=== PATIENT | female | born 1965 | race Caucasian/White ===

== ENCOUNTER → 2016-11-29 | Emergency (ER) | payer MEDICARE ==
[~2016-11-29] MED LIST: ALPR0.254 PO; ALPR1TAB2 PO; ATEN50TA41 PO; CLON0.2T10 PO; HYDR-3240 PO; LISI-167 PO; TRAZ150T68 PO; [UNRECOGNIZED DRUG - REMARK] PO
== END ==
LOC: ED 06:59
DX: B86 Scabies (principal); F41.1 Generalized anxiety disorder
CPT/HCPCS: 99283

== ENCOUNTER 2017-01-15 18:31 | Emergency (ER) | payer MEDICARE ==
[~2017-01-15] VITALS: Ht 170.2 cm; Wt 68.0 kg
[2017-01-15 18:35] VITALS: BP 115/80
[2017-01-15] MEDS ORDERED: DIPHENHYDRAMINE 50 MG/ML, 1ML IM ONE (20:00)
[2017-01-15] MEDS ORDERED: LORazepam 2 MG/ML, 1ML IM ONE (20:00)
[2017-01-15] MEDS ORDERED: DEXAMETHASONE 4 MG/ML, 1ML IM ONE (20:00)
[2017-01-15] MEDS ORDERED: DEXAMETHASONE 4 MG/ML, 5ML ONE (20:12)
[2017-01-15] MEDS ORDERED: LORazepam 2 MG/ML, 1ML ONE (20:12)
== END 2017-01-15 21:28 | disposition home or self-care (01) ==
LOC: ED 20:30
DX: L24.9 Irritant contact dermatitis, unspecified cause (principal)
CPT/HCPCS: 96372; 99284; J1100; J2060; Q0177

== ENCOUNTER 2017-01-20 09:46 | Emergency (ER) | payer MEDICARE ==
[~2017-01-20] VITALS: Ht 170.2 cm; Wt 65.0 kg
[2017-01-20] MEDS ORDERED: SODIUM CHLORIDE FLUSH 10ML SYR IVF ONE (10:00)
[2017-01-20] MEDS ORDERED: SODIUM CHLORIDE 0.9% 1,000ML IVBOLUS ONE (10:00)
[2017-01-20] MEDS ORDERED: KETOROLAC 30 MG/1 ML IVPush ONE (10:00)
[2017-01-20] MEDS ORDERED: KETOROLAC 30 MG/1 ML ONE (10:09)
[2017-01-20 10:54] LABS: BLOOD UREA NITROGEN 14 mg/dL (7-18)
[2017-01-20 10:59] LABS: IS PT STATUS REG ER OR PRE ER? YES
[2017-01-20 13:38] VITALS: BP 100/70
== END 2017-01-20 13:44 | disposition home or self-care (01) ==
LOC: ED 11:07
DX: R07.2 Precordial pain (principal); R55 Syncope and collapse; K21.9 Gastro-esophageal reflux disease without esophagitis; I51.7 Cardiomegaly; F41.9 Anxiety disorder, unspecified; I10 Essential (primary) hypertension
CPT/HCPCS: 36415; 71010; 80048; 82040; 84484; 85025; 85379; 93005; 96374; 99285; J1885; J7030

== ENCOUNTER 2017-04-15 20:42 | Emergency (ER) | payer MEDICARE ==
[~2017-04-15] VITALS: Ht 170.2 cm; Wt 66.7 kg
[~2017-04-15 20:42] MED LIST changes: +TRAZ150T62 PO; -TRAZ150T68 PO
[2017-04-15 20:54] VITALS: BP 136/89
== END 2017-04-15 21:40 | disposition home or self-care (01) ==
LOC: ED 21:36
DX: K04.7 Periapical abscess without sinus (principal); K02.9 Dental caries, unspecified; K21.9 Gastro-esophageal reflux disease without esophagitis; I10 Essential (primary) hypertension
CPT/HCPCS: 99283

== ENCOUNTER 2017-11-14 18:43 | Emergency (ER) | payer MEDICARE, MEDICAID ==
[~2017-11-14] VITALS: Ht 177.8 cm; Wt 62.9 kg
[2017-11-14 18:54] VITALS: BP 202/131
== END 2017-11-14 19:39 | disposition home or self-care (01) ==
LOC: ED 19:10
DX: L29.9 Pruritus, unspecified (principal)
CPT/HCPCS: 99283

== ENCOUNTER 2018-05-17 09:45 | Emergency (ER) | payer MEDICAID, MEDICARE ==
[~2018-05-17] VITALS: Ht 177.8 cm; Wt 64.0 kg
[2018-05-17 10:12] VITALS: BP 156/109
[2018-05-17] MEDS ORDERED: HYDR25TA6 PO (10:13)
== END 2018-05-17 10:45 | disposition home or self-care (01) ==
LOC: ED 10:43
DX: L24.3 Irritant contact dermatitis due to cosmetics (principal); I10 Essential (primary) hypertension; K21.9 Gastro-esophageal reflux disease without esophagitis; F17.200 Nicotine dependence, unspecified, uncomplicated
CPT/HCPCS: 99283

== ENCOUNTER 2018-06-27 14:26 | Emergency (ER) | payer MEDICARE ==
[~2018-06-27] VITALS: Ht 167.6 cm; Wt 62.7 kg
[~2018-06-27 14:26] MED LIST changes: +HYDR25TA6 PO
[2018-06-27 14:57] LABS: BASOPHILS # (AUTO) 0.01 x10^3/uL (0-0.1); BASOPHILS % (AUTO) 0 % (0-1); EOSINOPHILS # (AUTO) 0.27 x10^3/uL (0-0.4); EOSINOPHILS % (AUTO) 4 % (1-7); LYMPHOCYTES % (AUTO) 21 % (22-44); MD NO; MEAN CORPUSCULAR HEMOGLOBIN 29.6 pg (27.0-34.8); MEAN CORPUSCULAR VOLUME 89.6 fL (80-100); MONOCYTES # (AUTO) 0.32 x10^3/uL (0.2-0.8); MONOCYTES % (AUTO) 5 % (2-9); NEUTROPHILS # (AUTO) 4.77 x10^3/uL (1.8-6.8); NEUTROPHILS % (AUTO) 71 % (42-75); PLATELET COUNT 241 x10^3/uL (130-400); RED BLOOD COUNT 4.88 x10^6/uL (3.82-5.3); RED CELL DISTRIBUTION WIDTH 14.2 % (9.6-15.2)
[2018-06-27 15:09] LABS: ALANINE AMINOTRANSFERASE 22 U/L (12-78); ALBUMIN 3.7 g/dL (3.4-5.0); ANION GAP 9 mmol/L (5-15); CALCIUM 8.1 mg/dL (8.5-10.1); CHLORIDE 107 mmol/L (98-107); CREATININE 0.89 mg/dL (0.55-1.02)
[2018-06-27 15:11] LABS: ALKALINE PHOSPHATASE 109 U/L (45-117); BILIRUBIN,TOTAL 0.2 mg/dL (0.2-1.0); TOTAL PROTEIN 6.8 g/dL (6.4-8.2)
--- NOTE | 2018-06-27 15:46 | NUR ---
PATIENT PRESENTS TO ED TODAY FOR BENITO, V/D, DIZZINESS, AND WEAKNESS X 2 DAYS. SKIN WARM, PINK, DRY. NAD NOTED, SPOUSE AT BEDSIDE, CALL LIGHT WITHIN REACH. AWAITING MD ORDERS.
[2018-06-27] MEDS ORDERED: TRAZ50TA66 PO (15:50)
[2018-06-27 15:51] VITALS: BP 140/113
--- NOTE | 2018-06-27 15:51 | NUR ---
PA AT BEDSIDE.
--- NOTE | 2018-06-27 15:53 | NUR ---
UA NOT INDICATED PER PA. NO UA COLLECTED.
--- NOTE | 2018-06-27 15:55 | NUR ---
PATIENT TO XRAY VIA GURNEY AT THIS TIME, NAD NOTED.
--- NOTE | 2018-06-27 16:21 | NUR ---
WENT INTO ROOM TO DC PATIENT, PATIENT IN BATHROOM.
--- NOTE | 2018-06-27 16:34 | NUR ---
Patient/Caregiver given discharge instructions and they have confirmed that they understand the instructions. Patient ambulatory with steady gait.
== END 2018-06-27 16:36 | disposition home or self-care (01) ==
LOC: ED 16:30
DX: J01.10 Acute frontal sinusitis, unspecified (principal); I10 Essential (primary) hypertension; G43.909 Migraine, unspecified, not intractable, without status migrainosus; K21.9 Gastro-esophageal reflux disease without esophagitis; F41.1 Generalized anxiety disorder; F17.200 Nicotine dependence, unspecified, uncomplicated
CPT/HCPCS: 36415; 71046; 80053; 83690; 85025; 99284

== ENCOUNTER 2018-10-06 19:14 | Emergency (ER) | payer MEDICARE ==
[~2018-10-06 19:14] MED LIST changes: +TRAZ50TA66 PO
== END 2018-10-06 19:29 | disposition left against medical advice (07) ==
LOC: ED 19:23
DX: R03.0 Elevated blood-pressure reading, without diagnosis of hypertension (principal); Z76.0 Encounter for issue of repeat prescription; Z53.21 Procedure and treatment not carried out due to patient leaving prior to being seen by health care provider

== ENCOUNTER 2019-08-28 19:00 | Emergency (ER) | payer MEDICARE ==
[~2019-08-28] VITALS: Ht 170.2 cm; Wt 58.7 kg
[2019-08-28 19:07] VITALS: BP 180/122
--- NOTE | 2019-08-28 19:34 | NUR ---
NO ANSWER WHEN CALLED TO BE ROOMED @ [id number]
--- NOTE | 2019-08-28 19:43 | NUR ---
NO ANSWER WHEN CALLED TO BE ROOMED @ 1943.
--- NOTE | 2019-08-28 20:06 | NUR ---
NO ANSWER WHEN CALLED TO BE ROOMED @ 2005.
== END 2019-08-28 20:13 | disposition left against medical advice (07) ==
LOC: ED 20:00
DX: J02.9 Acute pharyngitis, unspecified (principal); R50.9 Fever, unspecified; Z53.21 Procedure and treatment not carried out due to patient leaving prior to being seen by health care provider

== ENCOUNTER 2020-04-19 18:52 | Emergency (ER) | payer MEDICARE, MEDICAID ==
[~2020-04-19] VITALS: Ht 170.2 cm; Wt 63.8 kg
[2020-04-19 19:04] VITALS: BP 197/110
[2020-04-19] MEDS ORDERED: HYDR50TA3 PO (19:28)
--- NOTE | 2020-04-19 19:33 | NUR ---
PT CC OF L FOREARM PAIN SHE BELIEVES FROM INSECT BITE ABOUT 3-4 HRS AGO. FOREARM RED AND SWOLLEN APPROX 4 IN LENGTH, 1.5 IN WIDE. 9/10 PAIN.
== END 2020-04-19 20:04 | disposition home or self-care (01) ==
LOC: ED 19:55
DX: L03.114 Cellulitis of left upper limb (principal); I10 Essential (primary) hypertension; K21.9 Gastro-esophageal reflux disease without esophagitis; F17.200 Nicotine dependence, unspecified, uncomplicated
CPT/HCPCS: 99283